=== PATIENT | male | born 1975 | race Caucasian/White ===

== ENCOUNTER 2021-11-05 10:32 | Emergency (ER) | payer BC, SELFPAY ==
--- NOTE | 2021-11-05 10:33 | ED.URI ---
HPI - URI/Sore Throat General Chief Complaint: Upper Respiratory Infection Stated Complaint: sore throat nausea head cold Time Seen by Provider: 11/05/21 10:33 Source: patient Mode of arrival: ambulatory Limitations: no limitations History of Present Illness HPI Narrative: Mr. Ahmadi is a 46-year-old male patient presenting to the clinic today with complaints of a sore throat, nausea, headache, productive cough, and chills x 2 days. He reports that he has tested positive for COVID at home. States that his family had COVID last week. MD elicited complaint: sore throat and nasal congestion Related Data Allergies Allergy/AdvReac Type Severity Reaction Status Date / Time No Known Allergies Allergy Verified 11/05/21 10:48 Review of Systems Review of Systems: Pertinent positives per HPI. Patient denies any rash, visual changes, dizziness, shortness of breath, chest pain, palpitations, nausea, vomiting, diarrhea, constipation, abdominal pain, or any urinary issues. PMFSH Comments At the time of my signature, I reviewed and agree with the nursing past medical, surgical, social, and family history. There is no relevant family history pertinent to the patient complaint. Exam Narrative: General: Well-developed, well nourished, in no apparent distress Head: Normocephalic, atraumatic Eyes: Pupils equally round and reactive to light bilaterally, EOM intact, sclera and conjunctive clear, no discharge, lids normal Ears: TMs intact, dull, mild bulging, ear canals clear, no drainage, grossly hearing normal. Nose: Nares patent, clear nasal discharge, no inflammation, no sinus tenderness. Mouth: Oral pharynx without lesions or masses, good dentition, MMM. Oropharynx red without tonsillar enlargement or exudate Neck: Supple, trachea midline, no enlargement of anterior or posterior cervical nodes, no thyroid masses or goiter palpable. Cardio: Regular rate and rhythm, s1 and s2 normal, no murmur appreciated. Resp: Clear to auscultation bilaterally, no rhonchi, rales, wheezing or rubs Course Course Emergency Course: Portions of this record may have been created with voice recognition software. Level of Care: Express Care Visit Vital Signs Vital signs: Vital signs reviewed MDM - URI/Sore Throat MDM Narrative Medical decision making narrative: At the time of visit patient is resting comfortably on the exam table. COVID test positive in the clinic. I will give the patient a course of Paxil bid per his request. Supportive measures were discussed with the patient and the and they voiced understanding of discharge instructions and agrees to treatment plan. Differential Diagnosis Differential diagnosis: Likely upper respiratory infection, otitis media, sinusitis, viral infection, bronchitis, influenza, pharyngitis and other (COVID) Discharge Plan Discharge Clinical Impression: COVID-19 Patient Disposition: Home, Self-Care Condition: Stable Instructions: Antibiotic Form, COVID-19 (Coronavirus Disease 2019) (ED), How to Recover from COVID-19 at Home (ED) Additional Instructions: Take prescription medications only as prescribed-Paxilovid as prescribed Covid testing was positive in the clinic today. Increase fluids and stay well hydrated Tylenol/motrin for pain/fever Flonase and OTC antihistamines as directed Vicks vapor rub to open sinuses Sinus rinses for congestion Cepacol spray, cough drops, throat lozenges, warm tea with honey/lemon, gargle salt water to soothe throat BRAT diet for diarrhea Clear liquids x 24 hours then advance as tolerated for nausea/vomiting May return to the clinic if symptoms worsen Go to the ED if you develop a worsening in your condition- high fever not controlled by Tylenol or Motrin, dehydration, weakness, lethargy, shortness of breath, or chest pain. Follow up with your PCP in 3-5 days if symptoms persist. Prescriptions: New Paxlovid (EUA) 300 mg (150 mg x 2)-100
[2021-11-05 10:39] VITALS: BP 145/70; PULSE 92; RESP 20; TEMP 37.2; O2SAT 98
== END 2021-11-05 10:53 | disposition home or self-care (01) ==
LOC: EXPBETH 10:37
PROVIDERS: Emergency Provider Nurse Practitioner Family; PCP Family Medicine
DX: U07.1 COVID-19 (principal)
CPT/HCPCS: 87426; 99213; C9803; G0463